=== PATIENT | male | born 1960 | race Caucasian/White ===

== ENCOUNTER 2017-05-09 06:28 | Day surgery (SDC) | payer BC ==
[2017-05-08 16:46] VITALS: BMI 43.7
[2017-05-09 07:50] LABS: Hematocrit 43.1 % (42.0-52.0); Mean Platelet Volume 6.3 fL (7.4-10.4); Red Blood Cell (RBC) Count 4.63 mill/uL (4.70-6.10)
[2017-05-09 07:54] LABS: Prothrombin Time 16.3 SEC (12.0-14.7)
[2017-05-09 07:55] LABS: PTT 41.2 SEC (22.9-36.1)
[2017-05-09 08:08] LABS: Anion Gap 11 mmol/L (10-20); BUN (Urea Nitrogen) 22 mg/dL (8.4-25.7); Calc. Creatinine Clearance 174 mL/min (70-130); Calcium 9.5 mg/dL (7.8-10.44); Carbon Dioxide 28 mmol/L (22-29); Chloride 104 mmol/L (98-107); Cholesterol 135 mg/dl (< 200 Desired); Estimated GFR-MDRD 73; LDL Cholesterol, Calculated 60 mg/dL
[2017-05-09 08:09] LABS: Band 2 % (5-11); Metamyelocyte 1 % (0-0); Neutrophil 43 % (42-75); Reactive Lymphocytes 1 % (0-10)
[2017-05-09] MEDS ORDERED: Propofol 500 MG/50 ML VIAL ONE ×4 (08:11→10:47)
[2017-05-09] MEDS ORDERED: Midazolam HCl 2 mg/2 ml Vial ONE ×2 (08:20→10:28)
[2017-05-09] MEDS ORDERED: Heparin 10,000 UNITS/1 ML VIAL ONE (09:47)
[2017-05-09] MEDS ORDERED: DOPamine 400 MG/D5W 250 ML 250 ML ONE ×2 (10:36→12:33)
[2017-05-09] MEDS ORDERED: Ondansetron HCl/PF 4 MG/2 ML Vial ONE ×2 (11:29→11:45)
--- NOTE | 2017-05-09 11:34 | OP ---
DATE OF PROCEDURE: 05/09/2017 ELECTROPHYSIOLOGY STUDY AND RADIOFREQUENCY ABLATION REPORT REFERRING PHYSICIAN: Dr. Cruz Cutler REASON FOR PROCEDURE: Mr. Epperson is a 56-year-old man who has developed atrial flutter following an anaphylactic reaction to shellfish. The patient has remained in atrial flutter and was anticoagula manuel and rate controlled with Xarelto and metoprolol. Now he is here for radiofrequency ablation. H e has not stopped the Xarelto until yesterday. The decision was made to perform procedure on anticoagulation to avoid a chance of ischemic stroke. PROCEDURE: The patient received deep sedation by Anesthesia specialist. After adequate level of se dation achieved, the right femoral area was prepped, draped and anesthetized using subcutaneous lido rishi. The right femoral vein was accessed with ultrasound guidance. Two short 8 [place] sheaths we re introduced through this a 7 [place] Decapolar, catheter was advanced to the right atrium, his bund le, right ventricular and eventually the CS position. Following that studies were performed p roving atrial flutter, which appears to be typical and an 8 [place] Thermocool SmartTouch SF ablation catheter was advanced to the right atrium which was used to obtain full 3D mapping of the right atr ium, isthmus and CS location. Following that, further pacing maneuvers proved cavotricuspid isthmus dependency of the flutter with a short at the isthmus is noted. The flutter cycle length was 240 milliseconds. Following that radiofrequency ablation was performed over the cavotricuspid isthmus achieving complete block. During the ablation the flutter terminate d. Subsequent to that, repeat activation mapping of the isthmus was performed with proximal CS spac ing and further ablation points were delivered to achieve complete block with the cavotricuspid isth mus. With the ablation, the initial transisthmus 60 milliseconds increased to 200 milliseconds and beyond. Cavotricuspid isthmus block was demonstrated by the longest transisthmus time by the ablati on line and progressively shortening transisthmus times were measured more lateral to the line. Following that, the baseline EP studies were obtained showing a sinus node recovery time of 1034 whi ch was corrected about 54 milliseconds. A Wenckebach cycle length was 340, retrograde Wenckebach wa s about 500, central concentric retrograde VA activation is seen. The baseline measurements showing QRS duration 127, QT 360, HV is about 52 milliseconds at baseline. Repeated ablation maneuvers wer e attempted with burst pacing in the atrium which did not reinduce the atrial flutter on or off dopa mine as well. CONCLUSION: 1. Typical cavotricuspid isthmus dependent atrial flutter detected at baseline. 2. Successful cavotricuspid isthmus ablation eliminated atrial flutter and reinducibility. 3. Definite cavotricuspid isthmus block was demonstrated with increasing transisthmus time over 200 milliseconds. 4. Normal sinus and AV alirio function, no evidence of accessory pathways, no other atrial or suprav entricular arrhythmias are inducible.
[2017-05-09] MEDS ORDERED: Fentanyl 100 MCG/2 ML VIAL ONE (11:59)
--- NOTE | 2017-05-09 15:09 | ECHO ---
TWO DAY ECHOCARDIOGRAM REPORT: REFERRING PHYSICIAN: Dr. Cruz Cutler. REASON FOR PROCEDURE: Mr. Epperson is a 56-year-old man with A history of atrial flutter who underwent radiofrequency ablati on of the atrial flutter today. He is here postop with an episode of hypotension to evaluate for ef fusion or structural issues. PROCEDURE RESULTS: The left ventricle is nondilated. Left systolic function appears to be preserved. Mild concentric left hypertrophy is noted. Mitral valve has a trace regurgitation. Aortic valve has mild regurgita tion. Threshold is difficult to measure due to superior imposing mitral inflow Doppler waves postop . The tricuspid regurgitation velocity is about 1 meter per second systolic. Inferior vena cava is slightly dilated, but without significant respiratory variation postop. The right-sided chamber is nondilated and is free of effusion. The aortic valve has 3 leaflets, nonstenotic. Normal valvular stenosis identified. The rest portion of the ascending aorta is also nondilated. CONCLUSION: 1. Normal left ventricular systolic function. 2. Mild left atrial enlargement. 3. No pericardial effusion documented. 4. Mitral valve inflow pattern without significant respiratory variation. 5. Trace to mild AI, no other significant valvular abnormalities identified. POS: [facility]
== END 2017-05-09 17:23 | disposition home or self-care (01) ==
LOC: CCL 06:28
PROVIDERS: ATTEND Internal Medicine Cardiovascular Disease
DX: I48.4 Atypical atrial flutter (principal); E78.00 Pure hypercholesterolemia, unspecified; I10 Essential (primary) hypertension; E11.9 Type 2 diabetes mellitus without complications; E66.9 Obesity, unspecified; Z68.41 Body mass index [BMI] 40.0-44.9, adult; Z79.2 Long term (current) use of antibiotics; Z79.4 Long term (current) use of insulin; Z79.899 Other long term (current) drug therapy; Z91.013 Allergy to seafood; Z90.89 Acquired absence of other organs; Z98.890 Other specified postprocedural states; Z87.891 Personal history of nicotine dependence
CPT/HCPCS: 36415; 36416; 76942; 80048; 80061; 85007; 85027; 85610; 85730; 93005; 93010; 93306; 93613; 93623; 93653; 96374; C1730; C1769; J1265; J1644; J2250; J2405; J2704; J3010

== ENCOUNTER 2017-05-11 05:02 | Inpatient (IN) | payer BC ==
[2017-05-11 05:55] LABS: #Eosinphils 0.3 thou/uL (0.0-0.7); #Lymphocytes 1.9 thou/uL (1.20-3.40); #Monocytes 0.9 thou/uL (0.11-0.59); #Neutrophils 7.4 thou/uL (1.40-6.50); %Basophils 0.1 % (0.0-1.0); %Eosinophils 3.2 % (0.0-10.0); %Lymphocytes 18.3 % (21.0-51.0); %Monocytes 8.7 % (0.0-10.0); Hematocrit 42.5 % (42.0-52.0); Mean Platelet Volume 6.6 fL (7.4-10.4); Red Blood Cell (RBC) Count 4.54 mill/uL (4.70-6.10); White Blood Cell (WBC) Count 10.6 thou/uL (4.8-10.8)
[2017-05-11 06:18] LABS: ALT (SGPT) 45 U/L (8-55); AST (SGOT) 26 U/L (5-34); Alkaline Phosphatase 45 U/L (40-150); Anion Gap 13 mmol/L (10-20); BUN (Urea Nitrogen) 21 mg/dL (8.4-25.7); Bilirubin, Total 0.6 mg/dL (0.2-1.2); Calc. Creatinine Clearance 0 mL/min (70-130); Carbon Dioxide 29 mmol/L (22-29); Chloride 100 mmol/L (98-107); Estimated GFR-MDRD 60; Globulin 2.9 g/dL (2.4-3.5); Protein, Total 6.7 g/dL (6.0-8.3)
[2017-05-11 06:28] LABS: Troponin I 0.347 ng/mL (< 0.028)
[2017-05-11] MEDS ORDERED: Azithromycin 250 MG TAB ONE (06:47)
[2017-05-11] MEDS ORDERED: cefTRIAXone\\ROCEPHIN 1 GM VIAL ONE (06:47)
--- NOTE | 2017-05-11 07:48 | RAD ---
SINGLE VIEW OF CHEST: Date: 05/11/17 COMPARISON: 12/06/09. HISTORY: Status post heart ablation last with shortness of breath starting last night. FINDINGS: Single view of the chest shows a normal sized cardiomediastinal silhouette. There is no evidence of consolidation, mass, or pleural effusion. The bones are unremarkable. IMPRESSION: No evidence of acute cardiopulmonary disease. POS: [facility]
[2017-05-11] MEDS ORDERED: Dextrose 50% Abboject 50 ML SYRINGE SLOW IVP PRN (08:05)
[2017-05-11] MEDS ORDERED: Dextrose 5% in Water 1,000 ML IV PRN (08:05)
--- NOTE | 2017-05-11 08:45 | HP ---
PRIMARY CARE PHYSICIAN: Dr. Marco Eisenberg PATIENT ATTENDANT: Dr. Braxton DATE OF ADMISSION: 05/11/2017 CHIEF COMPLAINT: Acute shortness of breath. HISTORY OF PRESENT ILLNESS: Mr. Epperson is a pleasant 56-year-old gentleman who has a recent past me dical history that has been complicated by severe shellfish allergic reaction back on 04/12/2017. D uring evaluation for that, he was found to be in atrial flutter. He was referred to Cardiology and saw Dr. Braxton. Dr. Braxton performed an ablation and cardioversion on 05/09/2017 here at [facility]. The patient has been on Xarelto. He did well post-procedure until around 2100 last night he became acutely short of breath, developed a cough productive of some mucus with some blood tinging that seemed to get worse through the night , but has now resolved. He called his primary doctor instructional supervisor who [facility] Here on evaluation, he was found to be in mild respiratory distress. Workup showed normal labs exce pt for a troponin I of 0.347 and a D-dimer 1.64. CT angiogram was ordered, but due to his recent al lergy has been converted over to a VQ scan. The patient denies any fevers or chills, no cold sweats. No nausea, vomiting, diarrhea, constipatio n. He denies any increased swelling to his lower extremities. He does feel the chest tightness and wheezing. PAST MEDICAL HISTORY: 1. Diabetes mellitus type 2 with peripheral neuropathy. 2. Recent atrial flutter, status post ablation. 3. Hypertension. 4. He is on antihyperlipidemic agents, however, it is in place for cardioprotection. He has never had a documented high cholesterol level. PAST SURGICAL HISTORY: 1. Ablation on 05/09/2017. 2. Right knee repair in the . 3. Sinus surgery in 1998. 4. Left thumb repair in 1977. HOME MEDICATIONS: 1. [place] 5/325 one p.o. b.i.d. 2. Janumet 50/500 one p.o. b.i.d. 3. Atorvastatin 20 mg p.o. at bedtime. 4. Lantus 44 units subcu q.p.m., he did take it last night. 5. Xarelto 20 mg daily. 6. Metoprolol tartrate 50 mg p.o. b.i.d. 7. Moexipril 7.5 mg p.o. q.a.m. 8. Gabapentin 900 mg p.o. b.i.d. ALLERGIES: ADHESIVES, IODINE is assumed due to his recent SHELLFISH allergy. He has no known drug allergies. FAMILY HISTORY: Significant for dad, a paternal grandmother with diabetes. His dad also had prosta te cancer. No history of clotting or bleeding disorders, no immune dysfunction. SOCIAL HISTORY: Significant for past tobacco. He smoked about 1 pack per day for about 20 years, b ut quit in 2009. He is currently negative for habits x3. He is . His accompanies him to the ER. REVIEW OF SYSTEMS: A 10-point review of systems was performed, negative for all other systems excep t that as per HPI. PHYSICAL EXAMINATION: VITAL SIGNS: Temperature 98.3, pulse 88, blood pressure 112/92, respiratory 20, satting 91% on room air, 97% on 2-3 liters. GENERAL: He is awake. He is alert. He is oriented x3. He is a well-developed, well-nourished, ob riky white male, appears to be in no acute distress. HEENT: Normocephalic, atraumatic. Pupils equal, round, react to light bilaterally, mucous membrane s are moist with no visible lesions. No thrush. NECK: Supple, without lymphadenopathy, JVD, or thyromegaly. He has had normal carotid upstrokes. I do not hear bruits. LUNGS: He has good air movement bilaterally with symmetric chest excursion. He has slight upon exp iratory phase with end-expiratory high pitched wheezing. I do not hear any crackles, I do not hear any rhonchi. CARDIOVASCULAR: Normal S1, S2, no S3 or S4. He has a regular rhythm and a normal rate. He has no audible murmurs. ABDOMEN: Obese. It is nontender, nondistended with normoactive bowel sounds. There is no rebound, rigidity or guarding. EXTREMITIES: No cyanosis or clubbing with trace edema to the mid tibial level bilaterally. He has 2+ peripheral pulses of the dorsalis pedis and posterior tibial arteries bilaterally. SKIN: Warm, moist, and well perfused. He has no specific rashes or lesions, other than right lower extremity has a small scab present on the anterior surface and an old scarred to area along the ant erior tibialis location. MUSCULOSKELETAL: Normal to inspection, there is no inflamed joints and no palpable joint effusions. NEUROLOGIC: Cranial nerves II-XII are grossly intact with no focal neurologic deficit. He has 5/5 strength, normal reflexes in all 4 extremities, and a normal speech pattern. LABORATORY DATA: CMP is normal except for a glucose of 267. His creatinine is 1.24 up from his bas cristobal of around 1. CBC showed a white count 10.6, hemoglobin 13.9, hematocrit of 42.5 and platelets 191,000. D-dimer i s elevated at 1.64. Troponin I is elevated at 0.347 with a normal MB fraction, CK-MB of 2.3. Chest x-ray looks like it might have mild pulmonary edema, official reading showed no acute cardiopu lmonary disease. ASSESSMENT AND PLAN: 1. Acute onset of shortness of breath. In the setting of abnormal D-dimer, mildly elevated troponi n, possible mild pulmonary edema, certainly differential diagnosis includes non-ST elevation myocard ial infarction, pulmonary embolus, or acute onset of systolic or diastolic congestive heart failure. We will get echocardiogram, serial cardiac biomarkers, and follow up on the VQ scan. We will ask C ardiology to evaluate the patient. I do not know that there is anything additional to be done until these results are back. 2. Wheezing: New for this patient. He has no history of any kind of asthma or chronic obstructive pulmonary disease. We will have albuterol nebulizer treatments available q.4 h. p.r.n. wheezing. We will see how he responds. 3. Diabetes mellitus type 2 with peripheral neuropathy: The patient is on long-term insulin with L antus in the evening. We will continue that. I will place him on a diabetic diet, hold his Janumet and use sliding scale insulin. 4. Recent atrial flutter, status post ablation. We will ask Cardiology to opine. I suspect that h is elevated D-dimer and troponin are related to his ablation and cardioversion. We will continue th e Xarelto 20 mg daily as prescribed. 5. Hypertension, on metoprolol, moexipril: We will hold his moexipril right now in the setting of increased creatinine. We will continue metoprolol.
[2017-05-11] MEDS ORDERED: Gabapentin 300 MG CAP PO SCH (09:00)
[2017-05-11] MEDS ORDERED: Acetaminophen 325 MG TAB PO PRN (09:29)
[2017-05-11] MEDS ORDERED: Ondansetron HCl/PF 4 MG/2 ML Vial IVP PRN (09:29)
[2017-05-11] MEDS ORDERED: Ondansetron ODT 4 MG TAB PO PRN ×2 (09:29→09:35)
[2017-05-11] MEDS ORDERED: Sodium Chloride 0.9% 1,000 ML IV SCH (09:30)
[2017-05-11] MEDS ORDERED: Furosemide 20 MG TAB PO SCH (09:35)
[2017-05-11] MEDS ORDERED: HYDROcodone/Acetaminophen 5/325 mg Tablet PO PRN (09:35)
[2017-05-11] MEDS ORDERED: Albuterol Sulfate 2.5 mg/3 ml Neb NEB PRN (09:35)
[2017-05-11] MEDS ORDERED: Famotidine 20 MG TAB PO SCH ×2 (09:35→10:15)
[2017-05-11] MEDS ORDERED: HYDROcodone/Acetaminophen 10/325 mg Tablet PO PRN (09:35)
[2017-05-11] MEDS ORDERED: Guaifenesin DM 100-10/5 ML UDCUP PO PRN (09:35)
[2017-05-11] MEDS ORDERED: Calcium Carbonate 500 MG ChewTAB PO PRN (09:35)
[2017-05-11 09:44] LABS: Troponin I 0.367 ng/mL (< 0.028)
--- NOTE | 2017-05-11 09:53 | NM ---
VENTILATION PERFUSION LUNG SCAN: Date: 05/11/17 COMPARISON: None. HISTORY: Chest pain, shortness of breath, recent heart ablation, cough. TECHNIQUE: Ventilation imaging obtained following the inhalation of 13.2 mCi Xenon-133 gas by face mask. Perfus ion imaging obtained following the intravenous injection of 6.4 mCi technetium-99m labeled MAA. FINDINGS: The ventilation and perfusion imaging is unremarkable. Ventilation imaging demonstrates normal wash- in, equilibrium, and wash-out phase imaging. The perfusion imaging demonstrates no focal defect/defi cit. IMPRESSION: Unremarkable ventilation perfusion lung scan - very low probability for pulmonary embolism. POS: [facility]
[2017-05-11 10:26] VITALS: BMI 48.9
[2017-05-11] MEDS: Gabapentin 300 MG CAP PO SCH ×2 (10:58→21:43)
[2017-05-11] MEDS: Metoprolol Tartrate 50 MG TAB PO SCH ×2 (10:58→21:43)
[2017-05-11 12:35] LABS: Troponin I 0.298 ng/mL (< 0.028)
--- NOTE | 2017-05-11 16:35 | CON ---
DATE OF CONSULTATION: 05/11/2017 REASON FOR CONSULTATION: Shortness of breath. PRIMARY CARE PROVIDER: Mk Gold MD HISTORY OF PRESENT ILLNESS: Mr. Epperson is a pleasant 56-year-old gentleman who is a patient of Dr. Cruz Cutler. He recently underwent atrial flutter ablation by Dr. Braxton on 05/09/2017. He devel oped atrial flutter after recent anaphylactic reaction to shellfish. He thinks he went home and felt well on 05/10/2017. He then developed shortness of breath. He also states he was coughing up blood, that was mainly in his sputum. No clot present. He was placed on Xarelto recently due to atrial flutter. PAST MEDICAL HISTORY: Diabetes mellitus, atrial flutter, hypertension. PAST SURGICAL HISTORY: Knee repair, sinus surgery, thumb repair. HOME MEDICATIONS: [place], Janumet, atorvastatin, Lantus, Xarelto, metoprolol, and gabapentin. ALLERGIES: IODINE. FAMILY HISTORY: Positive for CAD. SOCIAL HISTORY: No current tobacco or alcohol use. REVIEW OF SYSTEMS: Ten-point review of systems is reviewed and as above, otherwise negative. PHYSICAL EXAMINATION: GENERAL: Patient is a pleasant male who is in no acute distress. The patient appears his stated age. VITAL SIGNS: Blood pressure 158/74, pulse 86, and temperature 99. NEUROLOGIC: The patient is alert and oriented times 3 with no focal neurologic deficits. HEENT: Sclerae without icterus. Mouth has moist mucous membranes with normal pallor. NECK: No JVD. Carotid upstroke brisk. No bruits bilaterally. LUNGS: Clear to auscultation with unlabored respirations. BACK: No scoliosis or kyphosis. CARDIAC: Regular rate and rhythm with normal S1 and S2. No S3 or S4 noted. No significant rubs, murmurs, thrills, or gallops noted throughout the precordium. PMI is not displaced. There is no parasternal heave. ABDOMEN: Soft, nontender, nondistended. No peritoneal signs present. No hepatosplenomegaly. No abnormal striae. EXTREMITIES: 2+ femoral and 2+ dorsalis pedis pulses. No cyanosis, clubbing, or edema. SKIN: No gross abnormalities. PERTINENT LABS: Peak troponin 0.347, creatinine 1.24, GFR of 60. Hemoglobin 13.9. IMPRESSION: 1. Acute shortness of breath. 2. Atrial flutter, status post ablation. 3. Hemoptysis. RECOMMENDATIONS: His chest x-ray was negative. His pulmonary function test is also negative. At t his point, I would be concerned about pericardial effusion which would be rare. His blood pressure is stable as is his heart rate, it is unlikely. We will check echo Doppler for further assessment. We will hold his Xarelto for now and add Lovenox until his issue currently resolved. We would give a dose of Lasix after echo has been performed.
[2017-05-11] MEDS: HumaLOG 300 UNITS/3 ML VIAL SC PRN (16:49)
[2017-05-11 17:59] LABS: Troponin I 0.286 ng/mL (< 0.028)
[2017-05-11] MEDS ORDERED: Non-Formulary Item 1 EACH (Rivaroxaban [Xarelto] 20 MG) PO SCH (21:00)
[2017-05-11] MEDS ORDERED: Atorvastatin Calcium 20 MG TAB PO SCH (21:00)
[2017-05-11] MEDS ORDERED: Insulin Detemir 100 UNITS/ML 44 UNITS in Pre-Filled Syringe 1 EACH SC SCH (21:00)
[2017-05-11] MEDS ORDERED: INSULIN GLARGINE HUM REC ANLOG 44 UNIT SQ SCH (21:00)
[2017-05-11] MEDS ORDERED: Rivaroxaban 10 MG TAB PO SCH (21:00)
[2017-05-11] MEDS ORDERED: FLU VACC QS2017-18 36 mo. & older 0.5 ML SYRINGE IM ONE (21:00)
[2017-05-11] MEDS: Famotidine 20 MG TAB PO SCH (21:43)
[2017-05-11] MEDS: Acetaminophen 325 MG TAB PO PRN (22:53)
[2017-05-12 02:36] LABS: #Eosinphils 0.3 thou/uL (0.0-0.7); #Lymphocytes 2.5 thou/uL (1.20-3.40); #Monocytes 1.1 thou/uL (0.11-0.59); #Neutrophils 6.3 thou/uL (1.40-6.50); %Basophils 0.5 % (0.0-1.0); %Eosinophils 2.7 % (0.0-10.0); %Lymphocytes 24.5 % (21.0-51.0); %Monocytes 10.9 % (0.0-10.0); Hematocrit 39.4 % (42.0-52.0); Mean Platelet Volume 6.5 fL (7.4-10.4); Red Blood Cell (RBC) Count 4.21 mill/uL (4.70-6.10); White Blood Cell (WBC) Count 10.2 thou/uL (4.8-10.8)
[2017-05-12 02:57] LABS: Troponin I 0.218 ng/mL (< 0.028)
[2017-05-12 03:08] LABS: Anion Gap 9 mmol/L (10-20); BUN (Urea Nitrogen) 14 mg/dL (8.4-25.7); Calc. Creatinine Clearance 212 mL/min (70-130); Calcium 9.5 mg/dL (7.8-10.44); Carbon Dioxide 33 mmol/L (22-29); Chloride 99 mmol/L (98-107); Estimated GFR-MDRD 83
[2017-05-12] MEDS: Metoprolol Tartrate 50 MG TAB PO SCH (09:38)
[2017-05-12] MEDS: Famotidine 20 MG TAB PO SCH (09:38)
[2017-05-12] MEDS: Gabapentin 300 MG CAP PO SCH (09:38)
[2017-05-12] MEDS: Acetaminophen 325 MG TAB PO PRN (09:45)
[2017-05-12] MEDS ORDERED: Furosemide 40 MG/4 ML VIAL IVP SCH (10:45)
[2017-05-12] MEDS: HumaLOG 300 UNITS/3 ML VIAL SC PRN (11:39)
[2017-05-12 15:30] VITALS: BP 162/64; TEMP 98.2
--- NOTE | 2017-05-12 17:10 | DIS ---
DATE OF ADMISSION: 05/11/2017 DATE OF DISCHARGE: 05/12/2017 PRIMARY CARE PHYSICIAN: Marco Eisenberg MD DISCHARGE DIAGNOSES: 1. Acute bronchitis. 2. Acute hypoxic respiratory failure - resolved. 3. Recent atrial flutter. 4. Status post ablation for atrial flutter. 5. Hypertension. 6. Diabetes mellitus type 2, insulin-dependent. CONSULTATION: Cardiology, Dr. Ragland. PROCEDURE: Echocardiogram on 05/11/2017 that was normal. HISTORY AND PHYSICAL: Mr. Epperson is a pleasant 56-year-old gentleman with severe obesity, BMI of 49 , who presents to the hospital for acute shortness of breath. He is 2 days post-ablation for atrial flutter. This started after a reaction to shellfish back in March. Ablation was without noted complications. The patient was acutely short of breath in this morning a nd the morning of admission, developed blood-streaked sputum, so presented [facility] for evaluation. There was, however, found to have low oxygen levels and we were called for admission and further wor kup. HOSPITAL COURSE: The patient was seen and examined by myself in the ER. He appeared to be acutely well in trauma. He was admitted to the hospital and Cardiology was consulted. VQ scan was obtained that showed low probability for pulmonary embolus and Cardiology evaluated him and felt like he nee ded to have an echo done to rule out pericarditis post-procedure. Echo was unremarkable. He remained afebrile overnight, was weaned off oxygen, and was stable for [facility] today. Due to the presentation with cough and blood-streaked sputum, he was diagnosed with acute bronchitis and discharged on antibiotics. PHYSICAL EXAMINATION: The patient was seen and examined on the day of discharge. DISCHARGE PLAN: Disposition were discussed with the patient [id number] at the bedside. DISCHARGE MEDICATIONS: 1. Levofloxacin 500 mg p.o. daily for 7 days. Prescription sent to his pharmacy. 2. Lipitor 20 mg p.o. q.p.m. 3. Gabapentin 800 mg b.i.d. 4. Hydrocodone p.r.n. 5. Lantus 44 units subcu q.p.m. 6. Metoprolol tartrate 25 mg p.o. b.i.d. 7. Moexipril 7.5 mg p.o. daily. 8. Xarelto 20 mg p.o. q.p.m. 9. Janumet 50/500 one p.o. b.i.d. FOLLOWUP APPOINTMENTS: 1. Primary care physician within a week. 2. Dr. Braxton with EP per his prior scheduled visit. DISCHARGE CONDITION: Good. DISPOSITION: The patient has been discharged home via private vehicle.
[2017-05-13] MEDS ORDERED: Rivaroxaban 10 MG TAB PO SCH (09:00)
== END 2017-05-12 16:53 | disposition home or self-care (01) | DRG 202 ==
LOC: ERS 05:02 → 2NO 08:55
PROVIDERS: ADMIT Internal Medicine; ATTEND Internal Medicine
DX: J20.9 Acute bronchitis, unspecified (principal); J96.01 Acute respiratory failure with hypoxia; I48.92 Unspecified atrial flutter; Z79.4 Long term (current) use of insulin; I10 Essential (primary) hypertension; Z79.01 Long term (current) use of anticoagulants; E11.42 Type 2 diabetes mellitus with diabetic polyneuropathy; Z87.891 Personal history of nicotine dependence
CPT/HCPCS: 36415; 36416; 71010; 78582; 80048; 80053; 82553; 84484; 85025; 85379; 87040; 93005; 93306; A4216; A9540; A9558; J0696; J1815; J1940

== ENCOUNTER 2017-11-29 08:56 | Outpatient (CLI) | payer BC ==
--- NOTE | 2017-11-29 11:09 | PRG ---
DATE OF SERVICE: 11/29/2017 CHIEF COMPLAINT: Sore left second toe. HISTORY OF PRESENT ILLNESS: A 56-year-old male who presents to the clinic today with a wound on his left second toe. He believes it started about 2 weeks ago. He said he had a crawfish boil and belie ves that he may have dropped a little bit of a scalding water on the foot. He said he did not notice it at that time, but the next day he noticed some blistering and then a wound developed. Since that time it does become more purple and red including up on the foot. He went to his doctor on and was given a shot of Rocephin and started on clindamycin 300 mg 3 times a day. He says since he has started on that some of the redness that was on the dorsum of the foot has decreased in consiste ncy. It was completely red, now it is some speckled areas of redness. He denies nausea, vomiting, f nahid or chills. Does have pain associated with the wound. He has been covering it with gauze and t ape. PAST MEDICAL HISTORY/PAST SURGICAL HISTORY/MEDICATIONS/ALLERGIES/ FAMILY HISTORY/SOCIAL HISTORY AND R JORJEW OF SYSTEMS: [facility] and can be reviewed there. I reviewed these and deem them accurate. PHYSICAL EXAMINATION: VITAL SIGNS: Temperature 98.6, pulse 61, respirations 20, blood pressure 156/74, blood sugar 140. EXTREMITIES: Dorsalis pedis, posterior tibial pulses are palpable. There is immediate capillary heaven l time to the distal aspect of the toe. There is no hair growth on the feet. Skin temperature is wa rm to the touch. No temperature gradient from proximal to distal. No varicosities present. NEUROLOGICAL EXAM: Light touch and protective threshold is intact on cursory exam. DERMATOLOGIC EXAM: There is an ulceration on the left dorsal second proximal interphalangeal joint. It measures 0.9 cm x 1.2 cm x 0.1 cm. It is 100% slough, yellow in coloration. There is periwound erythema up to the metatarsophalangeal joint with some petechiae on the dorsal aspect of the second a nd third metatarsals. No ascending lymphangitis present, no areas of fluctuance to indicate abscess. The wound is superficial in depth does not probe to tendon or bone. ASSESSMENT: 1. Second-degree burn to the left second toe with non-pressure ulceration with fat layer exposed. 2. Type 2 diabetes mellitus. PLAN: 1. I discussed with the patient his condition and treatment options. We are going to continue with him the clindamycin. He has enough to get him through until he sees me again next Saturday. 2. We are going to start him on Aquacel AG daily dressing changes. 3. We educated him on the signs of worsening infection, although he does have quite an experience wi th infections, understands these. He will return immediately should he encounter any of these. 4. Follow up with me in 1 week.
[2017-12-03] MEDS ORDERED: Sodium Chloride 0.9% 15 ML NEB ONE (17:44)
== END 2017-11-29 08:57 | disposition home or self-care (01) ==
LOC: WCC 08:56
PROVIDERS: ATTEND Podiatrist Foot & Ankle Surgery
DX: T25.232D Burn of second degree of left toe(s) (nail), subsequent encounter (principal); E11.621 Type 2 diabetes mellitus with foot ulcer; L97.522 Non-pressure chronic ulcer of other part of left foot with fat layer exposed
CPT/HCPCS: 97602; 99203; G0463

== ENCOUNTER 2017-12-06 09:54 | Outpatient (CLI) | payer BC ==
--- NOTE | 2017-12-06 13:47 | PRG ---
DATE OF SERVICE: 12/06/2017 SUBJECTIVE: This is a 57-year-old male returns today for followup left second toe proximal interphal angeal joint ulceration. States he has done well over the last week, has noticed decreased redness o n the foot, has been taking his clindamycin 3 times daily and has his last dose today. Denies any na usea, vomiting, fevers, or chills. OBJECTIVE: Ulceration to left second toe has decreased in size, measures 0.9 cm x 0.8 cm x 0.1 cm, 1 00% slough on the wound base erythema that had extended on to the foot has resolved. There is still slight erythema in the periwound area, does not probe to deeper tendon or bone. ASSESSMENT: 1. 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 2. Diabetes with peripheral neuropathy. PLAN: 1. Full thickness debridement of the subcutaneous tissue layer removing all nonviable tissue within the wound base down to bleeding granular wound base, removing biofilm and nonviable tissue. 2. Going to switch the patient from Aquacel AG to a Promogran dressing change daily. 3. Patient states he can be out of town next Saturday, but we will follow up with me in 2 weeks. He i s to finish his antibiotics. If he notices a worsening infection and will call him in another antibi otic before his next appointment if necessary.
== END 2017-12-06 09:55 | disposition home or self-care (01) ==
LOC: WCC 09:54
PROVIDERS: ATTEND Family Medicine
DX: E11.621 Type 2 diabetes mellitus with foot ulcer (principal); L97.529 Non-pressure chronic ulcer of other part of left foot with unspecified severity; E11.42 Type 2 diabetes mellitus with diabetic polyneuropathy

== ENCOUNTER 2019-02-20 09:29 | Outpatient (CLI) | payer BC ==
--- NOTE | 2019-02-20 12:50 | MRI ---
MRI OF LUMBAR SPINE WITHOUT CONTRAST: INDICATION: Right hip pain. Back pain. FINDINGS: The lumbar vertebrae maintain height. There is a mild anterolisthesis at L5-S1 and there is loss of disk space with degenerative disk and end plate changes at L5-S1. The other disk spaces are relative ly well preserved, although degenerative signal changes are present. At L1-2, mild diffuse disk bulge. No significant central canal or foraminal stenosis. There is asym metric disk bulge to the left at this level with mild foraminal encroachment. No definite nerve root impingement. At L2-3, no significant disk bulge or protrusion. Mild facet arthrosis. No central canal or foramin al stenosis. At L3-4, minimal disk bulge. Mild facet hypertrophy and arthrosis. No significant central canal or foraminal stenosis. At L4-5, broad-based disk bulge with evidence of small central protrusion indenting the thecal sac. No significant central canal stenosis. No significant foraminal stenosis. At L5-S1, there is anterolisthesis with degenerative disk changes as described above. Mild diffuse d isk bulge abuts the anterior thecal sac. Facet hypertrophy. No significant central canal stenosis. Bilateral foraminal stenosis at this level secondary to the listhesis, disk bulge, and facet hypertr ophy. IMPRESSION: Mild anterolisthesis at L5-S1 with bilateral foraminal stenosis at this level. POS: [facility]
== END 2019-02-20 09:30 | disposition home or self-care (01) ==
LOC: TBSIIMAG 09:29
PROVIDERS: ATTEND Psychiatry & Neurology Neurology
DX: M54.16 Radiculopathy, lumbar region (principal); M43.17 Spondylolisthesis, lumbosacral region; M48.07 Spinal stenosis, lumbosacral region
CPT/HCPCS: 72148

== ENCOUNTER 2019-03-18 09:33 | Outpatient (CLI) | payer BC ==
--- NOTE | 2019-03-18 12:55 | RAD ---
EXAM: LUMBAR SPINE FOUR VIEWS: 03/18/19 HISTORY: Spondylolisthesis. Exam includes standing, flexion and extension lateral views. Grade I anterolisthesis of L5 on S1 without evidence for abnormal translation between flexion and ext ension. Generalized disc osteophytosis and facet arthrosis. No focal bone lesion or acute fracture. IMPRESSION: Anterolisthesis of L5 on S1 without abnormal translation between flexion and extension. Generalized s pondylosis. POS: [facility]
== END 2019-03-18 09:34 | disposition home or self-care (01) ==
LOC: BICRAD 09:33
PROVIDERS: ATTEND Anesthesiology Pain Medicine
DX: M43.10 Spondylolisthesis, site unspecified (principal); M43.17 Spondylolisthesis, lumbosacral region; M47.817 Spondylosis without myelopathy or radiculopathy, lumbosacral region
CPT/HCPCS: 72110

== ENCOUNTER 2019-05-15 07:53 | Outpatient (CLI) | payer BC ==
[2019-05-15 09:02] LABS: #Eosinphils 0.3 thou/uL (0.0-0.7); #Lymphocytes 2.1 thou/uL (1.20-3.40); #Monocytes 0.6 thou/uL (0.11-0.59); %Basophils 0.5 % (0.0-1.0); %Monocytes 8.9 % (0.0-10.0); %Neutrophils 56.5 % (42.0-75.0); Hemoglobin 14.9 g/dL (14.0-18.0); Mean Corpuscular HGB CONC 32.7 g/dL (32.0-36.0); Mean Corpuscular Hemoglobin 30.4 pg (27.0-31.0); Mean Corpuscular Volume 92.9 fL (78.0-98.0); Mean Platelet Volume 6.5 fL (7.4-10.4); Platelet Count 232 thou/uL (130-400); RBC Distribution Width 12.6 % (11.5-14.5)
--- NOTE | 2019-05-15 09:05 | RAD ---
Exam: Chest 2 views HISTORY:Preoperative evaluate Comparison: None FINDINGS: Lungs: No masses or consolidation. Cardiac silhouette: Normal size Pulmonary vessels: Normal Pleural Spaces: Clear Pneumothorax: None Osseous abnormalities: None of acuity. IMPRESSION: No focal consolidation.
[2019-05-15 09:28] LABS: ALT (SGPT) 27 U/L (8-55); AST (SGOT) 19 U/L (5-34); Alkaline Phosphatase 46 U/L (40-110); Anion Gap 12 mmol/L (10-20); BUN (Urea Nitrogen) 17 mg/dL (8.4-25.7); Bilirubin, Total 0.4 mg/dL (0.2-1.2); Calc. Creatinine Clearance 0 mL/min (70-130); Calcium 9.5 mg/dL (7.8-10.44); Carbon Dioxide 28 mmol/L (22-29); Chloride 103 mmol/L (98-107); Estimated GFR-MDRD 65; Globulin 2.3 g/dL (2.4-3.5); Glucose 285 mg/dL (70-105); Potassium 4.7 mmol/L (3.5-5.1); Protein, Total 6.3 g/dL (6.0-8.3); Sodium 138 mmol/L (136-145)
--- NOTE | 2019-05-18 23:05 | EKG ---
Test Reason : Blood Pressure : / mmHG Vent. Rate : 074 BPM Atrial Rate : 208 BPM P-R Int : 000 ms QRS Dur : 118 ms QT Int : 390 ms P-R-T Axes : 000 062 025 degrees QTc Int : 432 ms Atrial fibrillation Low voltage QRS Incomplete right bundle branch block Cannot rule out Anterior infarct , age undetermined Abnormal ECG When compared with ECG of 11-MAY-2017 05:09, Atrial fibrillation has replaced Sinus rhythm Minimal criteria for Anterior infarct are now Present Confirmed by ESTELA LAWSON M.D. ([id number]) on 05/18/2019 11:05:11 PM Referred By: KYLE Confirmed By:ESTELA LAWSON M.D.
== END 2019-05-15 07:54 | disposition home or self-care (01) ==
LOC: LABBT 07:53
PROVIDERS: ATTEND Internal Medicine Cardiovascular Disease
DX: Z01.818 Encounter for other preprocedural examination (principal)
CPT/HCPCS: 71046; 80053; 85025; 93005; 93010

== ENCOUNTER 2019-05-19 05:55 | Day surgery (SDC) | payer BC ==
[2019-05-15 08:22] VITALS: BMI 50.0
[2019-05-19] MEDS ORDERED: Lidocaine 1% (PF) 30 ML VIAL ONE (06:37)
[2019-05-19 06:52] LABS: Cardiac Risk 2.6 (Less than 4.5)
[2019-05-19] MEDS ORDERED: Fentanyl 100 MCG/2 ML VIAL ONE (07:01)
[2019-05-19] MEDS ORDERED: Heparin 10,000 UNITS/1 ML VIAL ONE (07:01)
[2019-05-19] MEDS ORDERED: Midazolam HCl 2 mg/2 ml Vial ONE (07:01)
[2019-05-19] MEDS ORDERED: Protamine Sulfate 50 MG/5 ML VIAL ONE (07:25)
[2019-05-19] MEDS ORDERED: Morphine 4 MG/ML VIAL ONE (10:30)
[2019-05-19] MEDS ORDERED: Iopamidol 370 76% 50 ML VIAL FS ONE (20:48)
[2019-05-19] MEDS ORDERED: Iopamidol 370 76% 100 ML VIAL ONE (20:48)
== END 2019-05-19 16:15 | disposition home or self-care (01) ==
LOC: CCL 05:55
PROVIDERS: ATTEND Internal Medicine Cardiovascular Disease
PROC: B2111ZZ Fluoroscopy of Multiple Coronary Arteries using Low Osmolar Contrast (ICD-10-PCS; principal; 2019-05-19)
PROC: 4A023N7 Measurement of Cardiac Sampling and Pressure, Left Heart, Percutaneous Approach (ICD-10-PCS; principal; 2019-05-19)
DX: R94.39 Abnormal result of other cardiovascular function study (principal); E11.9 Type 2 diabetes mellitus without complications; I48.91 Unspecified atrial fibrillation; E78.00 Pure hypercholesterolemia, unspecified; I10 Essential (primary) hypertension; Z79.01 Long term (current) use of anticoagulants; Z79.4 Long term (current) use of insulin; Z79.899 Other long term (current) drug therapy; Z87.891 Personal history of nicotine dependence; Z88.2 Allergy status to sulfonamides; Z91.041 Radiographic dye allergy status; Z91.013 Allergy to seafood
CPT/HCPCS: 36415; 36416; 76942; 80061; 85347; 93458; 99152; C1769; J1644; J2001; J2250; J2270; J2720; J3010; Q9967

== ENCOUNTER 2019-06-01 08:46 | Outpatient (CLI) | payer BC | END 2019-06-01 08:47 | disposition home or self-care (01) | LOC: DTY/OP 08:46 | PROVIDERS: ATTEND Surgery | DX: E66.01 Morbid (severe) obesity due to excess calories (principal) | CPT/HCPCS: 97802 ==

== ENCOUNTER 2019-06-10 10:52 | Outpatient (CLI) | payer BC ==
--- NOTE | 2019-06-10 11:10 | RAD ---
XR Chest Pa Lat STANDARD HISTORY: Preoperative evaluation COMPARISON: 05/15/2019 FINDINGS: The heart size is normal. The lungs are well expanded without focal areas of consolidation, pneumothorax or pleural effusions. IMPRESSION: No radiographic evidence of acute cardiopulmonary process.
== END 2019-06-10 10:53 | disposition home or self-care (01) ==
LOC: BICRAD 10:52
PROVIDERS: ATTEND Family Medicine
DX: Z01.818 Encounter for other preprocedural examination (principal)
CPT/HCPCS: 36415; 71046; 80053; 83036; 85025

== ENCOUNTER 2019-06-22 07:25 | Inpatient (IN) | payer OTHER ==
[2019-06-19 11:51] VITALS: BMI 47.5
[2019-06-22] MEDS ORDERED: Heparin 5,000 UNITS/ML VIAL ONE (08:27)
--- NOTE | 2019-06-22 08:47 | HP ---
CHIEF COMPLAINT: Morbid obesity. HISTORY OF PRESENT ILLNESS: The patient is a 58-year-old male, who has been overweight for many years, attempted multiple weight loss programs without success. He is here for sleeve gastrectomy. PAST MEDICAL HISTORY: Significant for diabetes, hypertension, hyperlipidemia, peripheral neuropathy, history of basal cell carcinoma, diabetic neuropathy, history of atrial flutter status post ablation. PAST SURGICAL HISTORY: Sinus surgery, knee surgery, thumb surgery, ablation of atrial fibrillation. MEDICATIONS: 1. Janumet. 2. Lantus. 3. Metoprolol. 4. Quinapril. 5. Atorvastatin. 6. New Century. 7. Lipitor. 8. Lyrica. 9. Sildenafil citrate. ALLERGIES: TO CRABS, SULFA. SOCIAL HISTORY: He is an occasional alcoholic. He is . No tobacco. PHYSICAL EXAMINATION: VITAL SIGNS: Height 75. Weight 395. Body mass index 49.37. GENERAL: He is a well-developed, well-nourished male, in no apparent distress. HEENT: Good hair growth. No alopecia. Pupils equal, round, reactive. Extraocular motor intact. Pharynx clear. Good dentition. NECK: Supple. No thyroid masses. No carotid bruits. LUNGS: Clear. HEART: Regular rate and rhythm. ABDOMEN: Soft, nontender, nondistended. No masses or hernias. BACK: Nontender. No deformity. EXTREMITIES: Good pulses. No pedal edema. ASSESSMENT: Morbid obesity with comorbidities. PLAN: Laparoscopic sleeve gastrectomy. CONSENT: I have discussed planned procedure as well as risk of bleeding, infection, injury to esophagus, spleen, loops of bowel, need to open. He understands and gives informed consent. Job ID: [id number]
[2019-06-22] MEDS ORDERED: Bupivacaine 0.25% HCL 30 ML VIAL ONE (09:16)
[2019-06-22] MEDS ORDERED: Midazolam HCl 2 mg/2 ml Vial ONE (09:23)
[2019-06-22] MEDS ORDERED: Fentanyl 250 MCG/5 ML VIAL ONE (09:23)
[2019-06-22] MEDS ORDERED: Ketamine 50 MG/ML (10ML VIAL) ONE (09:24)
[2019-06-22] MEDS ORDERED: PROPOFOL 200 MG/20 ML VIAL ONE (09:48)
[2019-06-22] MEDS ORDERED: Lidocaine 1% PF 5 ML VIAL ONE (09:48)
[2019-06-22] MEDS ORDERED: Rocuronium Bromide 10 MG/ML (10ML VIAL) ONE (09:48)
[2019-06-22] MEDS ORDERED: Glycopyrrolate 0.2 MG/ML 5 ML SYRINGE ONE (09:48)
[2019-06-22] MEDS ORDERED: Ondansetron PF 4 MG/2 ML Vial ONE (09:48)
[2019-06-22] MEDS ORDERED: Ketorolac Tromethamine 30 MG/ML VIAL ONE (09:48)
[2019-06-22] MEDS ORDERED: Insulin Regular 300 UNITS/3 ML VIAL SC PRN ×2 (11:01→19:56)
[2019-06-22] MEDS ORDERED: Ondansetron PF 4 MG/2 ML Vial IVP PRN (11:01)
[2019-06-22] MEDS ORDERED: diphenhydrAMINE 50 MG/ML VIAL IVP PRN ×2 (11:01→11:45)
[2019-06-22] MEDS ORDERED: hydrALAZINE 20 MG/ML VIAL SLOW IVP PRN (11:01)
[2019-06-22] MEDS ORDERED: Promethazine HCl 25 MG/ML VIAL IM PRN ×2 (11:01→11:45)
[2019-06-22] MEDS ORDERED: Dextrose 5% in Water 1,000 ML IV PRN (11:01)
[2019-06-22] MEDS ORDERED: Hydrocodone-Acetamin 15 ML UDCUP PO PRN (11:01)
[2019-06-22] MEDS ORDERED: Dextrose 50 % In Water 50 ML SYRINGE IV PRN (11:01)
[2019-06-22] MEDS ORDERED: Fentanyl 100 MCG/2 ML VIAL ONE ×2 (11:17→11:37)
[2019-06-22] MEDS ORDERED: Sodium Chloride 0.9% (PF) 10 ML VIAL FS PRN (11:24)
[2019-06-22] MEDS ORDERED: Promethazine HCl 25 MG/ML VIAL ONE (11:29)
[2019-06-22] MEDS ORDERED: Zolpidem Tartrate 5 MG TAB PO PRN (11:45)
[2019-06-22] MEDS ORDERED: diphenhydrAMINE 50 MG/ML VIAL IM PRN (11:45)
[2019-06-22] MEDS ORDERED: Communication Order-Pharmacy FS SCH (11:45)
[2019-06-22] MEDS ORDERED: fentaNYL Citrate/PF 2,000 MCG in Sodium Chloride 0.9% 60 ML IV PRN (11:45)
[2019-06-22] MEDS ORDERED: Ketorolac Tromethamine 30 MG/ML VIAL IVP PRN (11:45)
[2019-06-22] MEDS ORDERED: Naloxone HCl 0.4 mg/ml Vial IV PRN (11:45)
[2019-06-22] MEDS ORDERED: diphenhydrAMINE 25 MG CAP PO PRN (11:45)
[2019-06-22] MEDS ORDERED: Ketorolac Tromethamine 30 MG/ML VIAL IVP SCH (12:00)
--- NOTE | 2019-06-22 12:36 | OP ---
DATE OF PROCEDURE: 06/22/2019 PREOPERATIVE DIAGNOSIS: Morbid obesity. PROCEDURE PERFORMED: Laparoscopic sleeve gastrectomy with esophagogastroscopy. INDICATIONS: This is a 58-year-old male, morbidly obese, who has attempted multiple weight loss programs without success. FINDINGS: A 38-Jamaican bougie used. DESCRIPTION OF PROCEDURE: After informed consent was obtained, the patient was taken to the operating room and given general endotracheal anesthesia, placed in the supine position. Abdomen was prepped and draped in usual fashion. Local anesthesia was infiltrated subcutaneously and deep and a 12-mm incision was performed approximately 8 inches above the xiphoid slightly to the left. Veress needle inserted. Drop test performed. Pneumoperitoneum was created to a volume of 2 L of carbon dioxide. Utilizing a bladeless 12-mm trocar and 0-degree laparoscope, direct visual entry into the abdominal cavity was performed. Pneumoperitoneum was created to a pressure of 15 mmHg and the patient was placed in a steep reverse Trendelenburg position. Flakito liver retractor inserted. Left lobe of liver retracted superiorly. The pylorus was identified. A 12-mm port placed on the right beneath it and two 12s were placed on the left subcostal. The omentum was taken off the greater curvature utilizing the LigaSure 5 cm from the pylorus. Short gastrics divided with LigaSure and the left crura defined with LigaSure. A 38-Jamaican bougie inserted, directed into the antrum. The linear 60 mm green load stapler used to divide the antrum to the bougie, gold load along the bougie, and a series of blues through the angle of His. Intraoperative endoscopy was performed. The video endoscope inserted under direct vision and advanced into the sleeve. The staple line inspected. There was no bleeding. Staple line then tested by inflating the new stomach with pressurized air under water. There was no air leak. Stomach decompressed. Scope removed. The remnant stomach removed from the abdomen through the left lateral port site. The fascia was closed with 0 Vicryl suture and the GraNee needle. Trocars and retractors were removed. Skin closed with interrupted 4-0 Rapide. Dermabond applied. The patient tolerated the procedure well, transferred to Recovery in good condition. Sponge and needle count verified correct x2. Job ID: [id number]
[2019-06-22] MEDS: Ondansetron PF 4 MG/2 ML Vial IVP PRN ×2 (13:07→20:33)
[2019-06-22] MEDS: 1/2 NS w/KCL 20 mEq 1,000 ML IV SCH ×2 (15:04→21:33)
[2019-06-22] MEDS ORDERED: Metoclopramide HCl 10 MG/2 ML VIAL IVP PRN (16:23)
[2019-06-22] MEDS: CEFAZOLIN 2 GM in Premix Bag 1 BAG IVPB SCH (16:30)
[2019-06-22] MEDS ORDERED: Scopolamine 1.5 mg/72 hour Patch TOP SCH (16:30)
[2019-06-22] MEDS ORDERED: Labetalol HCl 100 MG/20 ML VIAL SLOW IVP PRN ×2 (18:48→18:56)
[2019-06-22 19:13] LABS: #Lymphocytes 0.8 thou/uL (1.20-3.40); #Monocytes 0.3 thou/uL (0.11-0.59); #Neutrophils 10.5 thou/uL (1.40-6.50); %Basophils 0.1 % (0.0-1.0); %Eosinophils 0.1 % (0.0-10.0); %Lymphocytes 6.8 % (21.0-51.0); %Monocytes 2.9 % (0.0-10.0); %Neutrophils 90.1 % (42.0-75.0); Hemoglobin 15.2 g/dL (14.0-18.0); Mean Corpuscular HGB CONC 32.8 g/dL (32.0-36.0); Mean Corpuscular Hemoglobin 30.2 pg (27.0-31.0); Mean Corpuscular Volume 92.3 fL (78.0-98.0); Mean Platelet Volume 6.8 fL (7.4-10.4); Platelet Count 182 thou/uL (130-400); RBC Distribution Width 12.3 % (11.5-14.5); Red Blood Cell (RBC) Count 5.03 mill/uL (4.70-6.10); White Blood Cell (WBC) Count 11.6 thou/uL (4.8-10.8)
[2019-06-22 19:38] LABS: Anion Gap 17 mmol/L (10-20); BUN (Urea Nitrogen) 28 mg/dL (8.4-25.7); Calc. Creatinine Clearance 113 mL/min (70-130); Calcium 9.6 mg/dL (7.8-10.44); Carbon Dioxide 23 mmol/L (22-29); Chloride 102 mmol/L (98-107); Estimated GFR-MDRD 41; Glucose 242 mg/dL (70-105); Magnesium 1.9 mg/dL (1.6-2.6); Potassium 5.3 mmol/L (3.5-5.1); Sodium 137 mmol/L (136-145)
[2019-06-22] MEDS ORDERED: Acetaminophen 650 MG Suppository PR PRN (19:53)
[2019-06-22] MEDS ORDERED: Acetaminophen 325 MG TAB PO PRN (19:53)
[2019-06-22] MEDS ORDERED: Dextrose 50% Abboject 50 ML SYRINGE SLOW IVP PRN (19:56)
[2019-06-22] MEDS ORDERED: Diltiazem 125 MG in Sodium Chloride 0.9% 100 ML IVPB SCH (23:15)
[2019-06-23 00:11] LABS: Lactic Acid 1.6 mmol/L (0.5-2.2)
[2019-06-23] MEDS: 1/2 NS w/KCL 20 mEq 1,000 ML IV SCH ×5 (00:54→23:07)
[2019-06-23] MEDS: CEFAZOLIN 2 GM in Premix Bag 1 BAG IVPB SCH (00:56)
[2019-06-23 04:33] LABS: #Monocytes 0.5 thou/uL (0.11-0.59); %Basophils 0.1 % (0.0-1.0); %Eosinophils 0.1 % (0.0-10.0); %Lymphocytes 9.2 % (21.0-51.0); %Monocytes 4.8 % (0.0-10.0); %Neutrophils 85.8 % (42.0-75.0); Hemoglobin 14.3 g/dL (14.0-18.0); Mean Corpuscular Hemoglobin 30.5 pg (27.0-31.0); Mean Corpuscular Volume 92.5 fL (78.0-98.0); Mean Platelet Volume 7.2 fL (7.4-10.4); Platelet Count 188 thou/uL (130-400); RBC Distribution Width 12.5 % (11.5-14.5); White Blood Cell (WBC) Count 10.5 thou/uL (4.8-10.8)
[2019-06-23 04:48] LABS: Anion Gap 19 mmol/L (10-20); BUN (Urea Nitrogen) 26 mg/dL (8.4-25.7); Calc. Creatinine Clearance 122 mL/min (70-130); Calcium 9.3 mg/dL (7.8-10.44); Carbon Dioxide 20 mmol/L (22-29); Chloride 101 mmol/L (98-107); Estimated GFR-MDRD 45; Glucose 289 mg/dL (70-105); Potassium 4.9 mmol/L (3.5-5.1); Sodium 135 mmol/L (136-145)
--- NOTE | 2019-06-23 07:36 | CON ---
DATE OF CONSULTATION: PRIMARY CARE PHYSICIAN: Marco Eisenberg MD REASON FOR CONSULTATION: Medical management. CHIEF COMPLAINT: The patient with left-sided abdominal pain. HISTORY OF PRESENT ILLNESS: Mr. Epperson is a 58-year-old gentleman, who was admitted for sleeve gastrectomy, which he had done earlier today. Apparently, he had multiple attempts at weight loss through weight loss programs. These have been unsuccessful. The patient states following surgery, he had some nausea and an episode of vomiting, but this has since settled. He reports having discomfort in the left upper quadrant region, which has been there since his surgery. He is slightly bloated and has not had a bowel movement yet. He has been n.p.o. per Dr. Dong's orders. No further episodes of vomiting. He states he feels well overall as the pain is being controlled with the fentanyl DESK REPRESENTATIVE. Floor nurse reported blood pressure is uncontrolled. The patient states he does not check his blood pressure at home, but thinks that his blood pressure is usually under control and he is compliant with his medications. At present, he denies having any headaches. No chest pain or shortness of breath. All other review of systemsare negative. PAST MEDICAL HISTORY: 1. Diabetes mellitus. 2. Hypertension. 3. Hyperlipidemia. 4. Peripheral neuropathy. 5. History of basal cell carcinoma. 6. History of atrial flutter/atrial fibrillation status post ablation. 7. On anticoagulation for atrial fibrillation, per patient. PAST SURGICAL HISTORY: 1. Sinus surgery. 2. Knee surgery. 3. Thumb surgery. 4. Ablation for atrial fibrillation. 5. Status post laparoscopic sleeve gastrectomy done today, June 22, 2019. SOCIAL HISTORY: The patient denies any tobacco use or illicit drug use. He denies any alcohol intake, but according to the recent H and P done by the surgical team, he was said to be "an occasional alcoholic." PHYSICAL EXAMINATION: GENERAL: The patient appears well developed, well nourished, obese, in no acute distress, lying comfortably in bed. VITAL SIGNS: Temperature 97.9, pulse 75, respirations 16, O2 saturation 95% on room air, and blood pressure 155/75. HEENT: Normocephalic and atraumatic. Pupils are equal and pinpoint, round, and reactive to light. Sclerae icterus. Oropharynx is clear. NECK: Supple without lymphadenopathy. LUNGS: Clear to auscultation bilaterally without wheezes, rales, or rhonchi. CARDIAC: Heart rate irregular, tachycardic. No murmurs or rubs. ABDOMEN: Distended, soft, nontender. Laparoscopic incisions appeared clean, dry without any bleeding or discharge. No surrounding erythema. EXTREMITIES: No lower leg swelling or edema. NEUROLOGIC: Alert and oriented x3. SKIN: Warm and dry. LABORATORY DATA: Glucose checked this morning was 136. IMAGING DATA: Chest x-ray done on June 10, 2019, showed no radiographic evidence of acute cardiopulmonary process. IMPRESSION AND PLAN: Mr. Epperson is a 58-year-old gentleman, who is status post laparoscopic sleeve gastrectomy, who has been referred for management of the following; 1. Hypertension. Currently, his blood pressure is . He is n.p.o. and has received hydralazine with persistently elevated diastolic blood pressure of 111. He is also tachycardic with a heart rate of 112. We will give a dose of labetalol 10 mg IV. No laboratory studies done today. Therefore, we will request labs including electrolytes. We will check BMP. Tachycardia may be associated with his pain. We will await for EKG results to ensure he is not in atrial fibrillation, RVR, given his history of atrial fibrillation. 2. Diabetes mellitus. The patient has been initiated on insulin sliding scale. Diet as per Surgical Team. We will continue to monitor glucose and hold home medications. 3. Hyperlipidemia. Resume home medications once cleared to receive p.o. medications. 4. Gastrointestinal prophylaxis. Famotidine 20 mg IV b.i.d. 5. Deep venous thrombosis prophylaxis. Mechanical SCDs. 6. Code status, full. His surrogate decision maker is his , Mary Ellen Epperson. ADDENDUM: The patient has had laboratory studies done, which showed a slightly elevated white count of 11.6. We will add on lactic acid and procalcitonin. No signs or symptoms of infection. The patient also does have an OFELIA with a creatinine of 1.7 compared to 1.33 previously. He is receiving IV fluids at 125 an hour, which we will continue. We will continue to monitor renal function. Additionally, EKG has been done and it shows the patient is in atrial fibrillation, RVR with a heart rate of 123. Since he just received labetalol, we will go ahead and transfer him to the telemetry floor and once he arrives as still tachycardic, we will plan to give 10 mg of Cardizem or a dose of digoxin. We will discuss further with Dr. Dominique. Dr. Dominique is aware and agrees with the plan as above. Job ID: [id number]
[2019-06-23] MEDS ORDERED: Enoxaparin Sodium 30 MG/0.3 ML SYRINGE SC SCH (09:00)
[2019-06-23] MEDS ORDERED: Metoprolol Tartrate 25 MG TAB PO SCH ×2 (09:00→15:45)
[2019-06-23] MEDS: Pantoprazole 40 MG VIAL IVP SCH (09:10)
[2019-06-23] MEDS: Ondansetron PF 4 MG/2 ML Vial IVP PRN (09:11)
--- NOTE | 2019-06-23 10:05 | RAD ---
Esophagram HISTORY: Bariatric surgery. FINDINGS: Single column contrast evaluation shows postoperative changes of the stomach consistent wit h gastric sleeve procedure. There is no evidence of obstruction or leak.
[2019-06-23] MEDS ORDERED: Hydrocodone-Acetamin 15 ML UDCUP PO PRN (13:53)
--- NOTE | 2019-06-23 14:16 | PRG ---
DATE OF SERVICE: 06/23/2019 SUBJECTIVE: The patient had a lot of nausea last night. He also had a high heart rate and was in atrial fibrillation. He was transferred to telemetry. He was started on a Cardizem drip, it is better now. OBJECTIVE: GENERAL: He looks good and he is awake and alert. VITAL SIGNS: Temperature 97.6, pulse 101, and blood pressure 156/74. SKIN: His incisions are healing well. GI: His barium swallow was fine. LABORATORY DATA: His white count is 10, H and H 14 and 43, and platelet count 188. Electrolytes, his creatinine is 1.5, glucose 289. ASSESSMENT: Status post sleeve with atrial fibrillation with rapid ventricular response. PLAN: Continue medical management. Start bariatric clears, at least stay another night. Job ID: [id number]
--- NOTE | 2019-06-23 14:19 | EKG ---
Test Reason : STAT Blood Pressure : / mmHG Vent. Rate : 119 BPM Atrial Rate : 125 BPM P-R Int : 000 ms QRS Dur : 120 ms QT Int : 336 ms P-R-T Axes : 000 -29 050 degrees QTc Int : 472 ms Atrial fibrillation with rapid ventricular response Low voltage QRS Non-specific intra-ventricular conduction delay Abnormal ECG When compared with ECG of 15-MAY-2019 08:43, Vent. rate has increased BY 45 BPM QRS axis Shifted left Confirmed by ANILA MARQUEZ, DR. Ceja ([id number]) on 06/23/2019 2:18:28 PM Referred By: RAISSA Confirmed By:DR. Marcial HIGH MD
[2019-06-23] MEDS ORDERED: Diltiazem 125 MG in Sodium Chloride 0.9% 100 ML IVPB SCH (15:27)
[2019-06-23] MEDS ORDERED: AFRIN NASAL SPRAY EA NARE PRN (20:43)
[2019-06-23] MEDS: Metoprolol Tartrate 50 MG TAB PO SCH (21:21)
--- NOTE | 2019-06-23 21:26 | CON ---
DATE OF CONSULTATION: HISTORY: Edi Epperson is a 58-year-old white male, who underwent a gastric sleeve placement yesterday and was found to be tachycardiac last night and was moved to telemetry. He was found to be in atrial fibrillation, which he has had since at least February 2019. In April 2017, he had anaphylactic reaction to shellfish and then developed atrial flutter. He underwent flutter ablation by Dr. Braxton. He was followed intermittently in the office after that and did not have any recurrence of any arrhythmia until he was sent for preoperative evaluation on March 26, 2019, prior to undergoing gastric sleeve placement. He was found to be in atrial fibrillation with controlled response. He denied any chest pain, shortness of breath, palpitations, PND, or orthopnea. He underwent echocardiogram, which revealed ejection fraction of 55% to 60% with mild concentric left ventricular hypertrophy, mild mitral regurgitation, and mild tricuspid regurgitation. He underwent Lexiscan Cardiolite, which revealed moderate proximal distal inferior wall decreased myocardial thickening and a moderate fixed proximal distal inferior wall defect. He underwent cardiac catheterization and was found to have normal coronary arteries and normal left ventricular function. He underwent gastric sleeve placement yesterday. Afterwards, he complained of a lot of left abdominal pain. It was also noted that he was tachycardic. EKG was obtained and it was felt that he had gone into new onset atrial fibrillation, however, he has been in atrial fibrillation for at least 3 months. He was placed on Cardizem drip for rate control. He had not received his metoprolol for 24 hours. He denies any chest discomfort, palpitations, or shortness of breath at this time. PAST MEDICAL HISTORY: Hypercholesterolemia, hypertension, diabetes, and obesity. OPERATIONS: Radiofrequency ablation of atrial flutter in 2017, sinus surgery, tonsillectomy, and gastric sleeve. MEDICATIONS: 1. Hydrocodone p.r.n. 2. Atorvastatin 20 daily. 3. Lantus insulin. 4. Janumet. 5. Eliquis 5 mg b.i.d. 6. Metoprolol 50 b.i.d. 7. Quinapril 20 mg daily. ALLERGIES: ANAPHYLAXIS WITH SHELLFISH. SOCIAL HISTORY: He stopped smoking 8 years ago. FAMILY HISTORY: Father has had bypass surgery. REVIEW OF SYSTEMS: A 12-point review of systems is otherwise unremarkable. PHYSICAL EXAMINATION: VITAL SIGNS: Blood pressure 156/74 and pulse of 101, irregularly irregular. HEENT: PERRL. NECK: Supple. CHEST: Clear. CARDIAC: S1 and S2 normal without any S3, S4, or murmurs. ABDOMEN: Obese. Normal bowel sounds. No tenderness. EXTREMITIES: Reveal 1+ pretibial edema. NEUROLOGIC: Grossly intact. SKIN: Warm and dry. LABORATORY DATA: EKG reveals atrial fibrillation with rapid ventricular response of 123 per minute and low-voltage with complete right bundle-branch block. CBC is unremarkable. Sodium 135, potassium 4.9, chloride 101, carbon dioxide 20, BUN 26, and creatinine 1.57. BNP 111.1. IMPRESSION: 1. Status post gastric sleeve surgery. 2. Atrial fibrillation since at least March 26, 2019. He has been anticoagulated with Eliquis. 3. Rapid ventricular response secondary to no metoprolol for 24 hours and post- op pain.. 4. Normal coronary arteries. 5. History of flutter ablation in 2017. 6. Hypertension. 7. Hypercholesterolemia. 8. Diabetes. 9. Former smoker. 10. Positive family history. PLAN: The patient will have his metoprolol 50 mg b.i.d. resumed. He needs to be placed back on Eliquis as soon as possible. When he is back on Eliquis, consideration be given to the addition of Multaq ultimately as an outpatient in the future and electrical cardioversion. I will taper and discontinue his Cardizem. Job ID: [id number] [facility]
--- NOTE | 2019-06-23 22:14 | PDOC.HOSPP ---
- Subjective Encounter Date: 06/23/19 Encounter Time: 12:00 Subjective: no abd pain or nausea no c/o palp or chest pain - Objective Vital Signs & Weight: Vital Signs (12 hours) Temp Pulse Resp BP Pulse Ox 06/23/19 19:20 98.6 F 105 H 20 175/84 H 94 L 06/23/19 15:16 98 F 83 22 H 162/73 H 95 06/23/19 11:00 97.6 F 101 H 18 156/74 H 96 Weight Weight 387 lb 4.8 oz I&O: 06/22/19 06/23/19 06/24/19 06:59 06:59 06:59 Intake Total 1570 1249.3 Output Total 770 1925 Balance 800 -675.7 Result Diagrams: 06/23/19 04:08 06/23/19 04:08 Additional Labs: Accuchecks 06/23/19 06/23/19 06/23/19 20:13 16:27 11:13 POC Glucose 219 H 232 H 253 H 06/23/19 05:18 POC Glucose 259 H Hospitalist ROS - Medication Medications: Active Medications Generic Name Dose Route Start Last Admin Trade Name Freq PRN Reason Stop Dose Admin Hydralazine HCl 10 mg 06/22/19 11:01 06/22/19 15:12 Apresoline SLOW IVP 10 mg Q4H PRN Administration SBP > 170 or DBP > 100 Potassium Chloride/Sodium Chloride 1,000 mls @ 100 mls/hr 06/22/19 20:00 18:46 1/2 Ns W/Kcl 20 Meq IV Not Given .Q10H KATARINA Diltiazem HCl 125 mg/ Sodium 125 mls @ 3 mls/hr 06/23/19 15:27 06/23/19 20:27 Chloride IVPB 06/24/19 06:00 125 mls INF KATARINA Administration Protocol 3 MG/HR Insulin Human Regular 0 units 06/22/19 11:01 06/23/19 17:28 Humulin R SC 4 unit .MODERATE SLIDING SC PRN Administration Moderate Correctional Scale Insulin Human Regular 0 units 06/22/19 19:56 06/22/19 20:44 Humulin R SC 2 unit .BEDTIME SLIDING SC PRN Administration Bedtime Correctional Scale Labetalol HCl 10 mg 06/22/19 18:56 06/22/19 19:10 Normodyne SLOW IVP 10 mg Q4H PRN Administration SBP > 180 OR DBP > 100 Metoclopramide HCl 10 mg 06/22/19 16:23 06/22/19 16:28 Reglan IVP 10 mg Q8H PRN Administration Nausea Metoprolol Tartrate 50 mg 06/23/19 21:00 06/23/19 21:21 Lopressor PO 50 mg BID KATARINA Administration Ondansetron HCl 4 mg 06/22/19 11:45 06/23/19 09:11 Zofran IVP 4 mg Q6H PRN Administration Nausea/Vomiting Pantoprazole Sodium 40 mg 06/23/19 09:00 06/23/19 09:10 Protonix IVP 40 mg DAILY KATARINA Administration Promethazine HCl 12.5 mg 06/22/19 11:45 06/22/19 15:07 Phenergan IM 12.5 mg Q4H PRN Administration Nausea/Vomiting Scopolamine 1.5 mg 06/22/19 16:30 06/22/19 16:29 Transderm Scop TOP 1.5 mg Q3D KATARINA Administration Sodium Chloride 10 ml 06/22/19 11:01 06/22/19 13:07 Flush - Normal Saline IVF 10 ml PRN PRN Administration Saline Flush - Exam General Appearance: NAD, awake alert Eye: PERRL, anicteric sclera ENT: no oropharyngeal lesions, dry oral mucosa Neck: supple, no JVD Heart: RRR, no murmur Respiratory: no wheezes, no rales Gastrointestinal: soft, non-distended, normal bowel sounds Extremities: no cyanosis, no edema Neurological: cranial nerve grossly intact, no focal deficits Psychiatric: normal affect, A&O x 3 Hosp A/P (1) Atrial fibrillation with RVR Code(s): I48.91 - UNSPECIFIED ATRIAL FIBRILLATION Status: Acute (2) s/p gastric sleeve surgery Status: Acute (3) Dyslipidemia Code(s): E78.5 - HYPERLIPIDEMIA, UNSPECIFIED Status: Chronic (4) DM2 (diabetes mellitus, type 2) Status: Chronic Qualifiers: Diabetes mellitus shelter insulin use: without shelter use (5) HTN (hypertension) Code(s): I10 - ESSENTIAL (PRIMARY) HYPERTENSION Status: Chronic Qualifiers: Hypertension type: essential hypertension Qualified Code(s): I10 - Essential (primary) hypertension (6) Obesity, Class III, BMI 40-49.9 (morbid obesity) Code(s): E66.01 - MORBID (SEVERE) OBESITY DUE TO EXCESS CALORIES Status: Chronic - Plan afib is rate controlled on cardizem drip lopressor 50mg bid has been added by with slow taper and dc of cardizem drip hemostable continue bariatric liq diet per gen surg adv on fentanyl, iv fluids, scopalamine patch
[2019-06-24 07:02] LABS: Anion Gap 14 mmol/L (10-20); BUN (Urea Nitrogen) 17 mg/dL (8.4-25.7); Calc. Creatinine Clearance 161 mL/min (70-130); Calcium 9.3 mg/dL (7.8-10.44); Carbon Dioxide 24 mmol/L (22-29); Chloride 101 mmol/L (98-107); Estimated GFR-MDRD 62; Glucose 214 mg/dL (70-105); Potassium 4.7 mmol/L (3.5-5.1); Sodium 134 mmol/L (136-145)
[2019-06-24] MEDS ORDERED: Enoxaparin Sodium 40 MG/0.4 ML SYRINGE SC SCH (09:00)
[2019-06-24] MEDS: Metoprolol Tartrate 50 MG TAB PO SCH (09:34)
[2019-06-24] MEDS: Pantoprazole 40 MG VIAL IVP SCH (09:36)
[2019-06-24] MEDS: 1/2 NS w/KCL 20 mEq 1,000 ML IV SCH (09:40)
--- NOTE | 2019-06-24 09:54 | PRG ---
DATE OF SERVICE: 06/24/2019 SUBJECTIVE: The patient feels fine. He is still having some pain in the left upper side. No nausea, vomiting, tolerating liquids well. OBJECTIVE: VITAL SIGNS: His heart rate is doing better, it is running in the 90s. T-max was 98.1, and blood pressure 117/89. GENERAL: He looks good. Incisions are healing well. ASSESSMENT: Postoperative atrial fibrillation. PLAN: Discharge when cleared by Medicine. Job ID: [id number]
[2019-06-24] MEDS ORDERED: Lisinopril 20 MG TAB PO SCH (10:15)
[2019-06-24 11:31] VITALS: BP 147/80; TEMP 98.4
--- NOTE | 2019-06-24 17:12 | DIS ---
DATE OF ADMISSION: 06/22/2019 DATE OF DISCHARGE: 06/24/2019 DISCHARGE DISPOSITION: To home. PRIMARY DISCHARGE DIAGNOSES: Atrial fibrillation with rapid ventricular response, resolved. The patient is status post laparoscopic gastric sleeve surgery, morbid obesity, dyslipidemia, diabetes mellitus type 2, hypertension. PROCEDURES DONE DURING HOSPITALIZATION: The patient has had laparoscopic sleeve gastrectomy done by Dr. Dong on 06/22/2019. He has had an upper GI series without air contrast done on 06/23/2019, which showed no evidence of obstruction or leak. H and H of 14 and 43, platelet count 188, MCV is 92, BUN 17, creatinine 1.2. BNP 111. Initial BUN and creatinine were 28 and 1.7. Discharge BUN and creatinine are 17 and 1.20. INPATIENT CONSULT: Dr. Cutler for Cardiology. DISCHARGE MEDICATIONS: 1. Lipitor 20 mg p.o. q.p.m. 2. [place] p.r.n. for pain. 3. Lyrica 75 mg p.o. three times daily. 4. Quinapril 20 mg daily. 5. Sildenafil 100 mg q.h.s. p.r.n. 6. Eliquis 5 mg p.o. twice daily to start from tomorrow evening. 7. Lopressor 50 mg twice daily. 8. Scopolamine patch 1.5 mg transdermal q.3 days for a total of 3 patches. 9. Januvia 100 mg p.o. daily. ALLERGIES: SULFA AND CRAB. BRIEF COURSE DURING HOSPITALIZATION: The patient initially got hospitalized electively on the for laparoscopic sleeve gastrectomy. This was done by Dr. Dong. Postop, the patient was recuperating on Med/Surg floor, but went into atrial fibrillation with RVR with underlying history of chronic AFib. His Lopressor was held due to n.p.o. status post surgery and preop. He was initially on Cardizem drip and was transferred to telemetry. 24 hours into his drip, the patient's medications were replaced and in fact, his Lopressor was increased from 25 to 50 mg twice daily. His Cardizem drip was discontinued. He was evaluated by Dr. Cutler. His AFib with RVR is fully rate controlled. He has had prior history of ablation for the same by Dr. Braxton in the past. He will have followup with Dr. Cutler in 3 weeks. He is cleared for discharge by both Dr. Cutler and Dr. Dong. For his diabetes, the patient initially was on Januvia with metformin. In view of current bariatric diet and the patient's oral intake being very minimal, he has been switched over to Januvia. His last four fingerstick have ranged from 214 to 232. He needs to check his fingerstick glucose twice daily for a period of 10 days. Also he was encouraged to have frequent oral sips of fluids and electrolytes to replenish in view of his bariatric procedure done. He will have close followup with Dr. Dong. Please note, I have seen and examined the patient on the day of discharge. Job ID: [id number]
[2019-06-24] MEDS ORDERED: Apixaban 5 MG TAB PO SCH (21:00)
[2019-06-25] MEDS ORDERED: Lisinopril 20 MG TAB PO SCH (09:00)
== END 2019-06-24 13:14 | disposition home or self-care (01) | DRG 620 ==
LOC: SURG A 07:25 → 2NO 21:15
PROVIDERS: ADMIT Surgery; ATTEND Surgery
PROC: 0DB64Z3 Excision of Stomach, Percutaneous Endoscopic Approach, Vertical (ICD-10-PCS; principal; 2019-06-22)
PROC: 0DJ68ZZ Inspection of Stomach, Via Natural or Artificial Opening Endoscopic (ICD-10-PCS; 2019-06-22)
DX: E66.01 Morbid (severe) obesity due to excess calories (principal); I48.20 Chronic atrial fibrillation, unspecified; I97.191 Other postprocedural cardiac functional disturbances following other surgery; I10 Essential (primary) hypertension; E78.5 Hyperlipidemia, unspecified; E11.40 Type 2 diabetes mellitus with diabetic neuropathy, unspecified; I48.91 Unspecified atrial fibrillation; Z68.42 Body mass index [BMI] 45.0-49.9, adult; Z79.899 Other long term (current) drug therapy; Z88.2 Allergy status to sulfonamides; Z91.013 Allergy to seafood; Z87.891 Personal history of nicotine dependence
CPT/HCPCS: 36415; 36416; 74241; 80048; 83605; 83735; 83880; 85025; 88307; 88312; 93005; 93010; 94760; C9113; J0360; J0690; J1644; J1650; J1815; J1885; J2001; J2250; J2405; J2550; J2704; J2765; J3010; J3480; J3490; S0020

== ENCOUNTER 2019-07-31 05:58 | Day surgery (SDC) | payer BC ==
[2019-07-30 10:46] VITALS: BMI 43.7
[2019-07-31] MEDS ORDERED: PROPOFOL 0 ML ONE (07:17)
[2019-07-31] MEDS ORDERED: Ketamine 50 MG/ML (10ML VIAL) ONE (07:46)
[2019-07-31] MEDS ORDERED: PROPOFOL 20 ML ONE (07:46)
--- NOTE | 2019-07-31 14:07 | OP ---
DATE OF PROCEDURE: 07/31/2019 PROCEDURE PERFORMED: Transesophageal echocardiogram. INDICATION: This is a 58-year-old gentleman with paroxysmal atrial fibrillation. DESCRIPTION OF PROCEDURE: The patient was taken to the PACU. The patient was sedated by Anesthesiology. Transesophageal probe was placed into the distal esophagus and stomach. Echocardiographic images were obtained. The transesophageal probe was removed. FINDINGS: 1. Normal left ventricular systolic function. 2. Biatrial enlargement. 3. Normal mitral and aortic valves. 4. Mild mitral regurgitation. 5. Mild aortic regurgitation. 6. Mild tricuspid regurgitation. 7. No thrombus is noted in left atrial appendage. 8. Atherosclerotic debris in the descending aorta. IMPRESSION: No formed thrombus in the left atrial or left atrial appendage. Job ID: [id number] [facility]
--- NOTE | 2019-07-31 16:30 | EKG ---
Test Reason : PREOP Blood Pressure : / mmHG Vent. Rate : 062 BPM Atrial Rate : 500 BPM P-R Int : 000 ms QRS Dur : 118 ms QT Int : 410 ms P-R-T Axes : 000 -10 036 degrees QTc Int : 416 ms Atrial fibrillation Low voltage QRS Incomplete right bundle branch block Cannot rule out Anterior infarct , age undetermined Abnormal ECG When compared with ECG of 22-JUN-2019 20:06, Vent. rate has decreased BY [address] Demarcus MCNALLY ([id number]) on 07/31/2019 4:30:01 PM Referred By: FARZANA Confirmed By:DR. Demarcus MCNALLY
--- NOTE | 2019-07-31 16:35 | EKG ---
Test Reason : POST MELINA/CARDIOVERSI Blood Pressure : / mmHG Vent. Rate : 049 BPM Atrial Rate : 049 BPM P-R Int : 200 ms QRS Dur : 124 ms QT Int : 454 ms P-R-T Axes : 070 012 047 degrees QTc Int : 410 ms Marked sinus bradycardia Non-specific intra-ventricular conduction delay Poor anterior R wave progression Abnormal ECG When compared with ECG of 31-JUL-2019 06:55, (Unconfirmed) Sinus rhythm has replaced Atrial fibrillation Confirmed by DR. Demarcus MCNALLY ([id number]) on 07/31/2019 4:35:04 PM Referred By: FARZANA/CRISTI Confirmed By:DR. Demarcus MCNALLY
== END 2019-07-31 09:30 | disposition home or self-care (01) ==
LOC: CCL 05:58
PROVIDERS: ATTEND Internal Medicine Cardiovascular Disease
PROC: B24BZZ4 Ultrasonography of Heart with Aorta, Transesophageal (ICD-10-PCS; principal; 2019-07-31)
DX: I48.0 Paroxysmal atrial fibrillation (principal); I08.3 Combined rheumatic disorders of mitral, aortic and tricuspid valves; I10 Essential (primary) hypertension; E11.9 Type 2 diabetes mellitus without complications; E78.00 Pure hypercholesterolemia, unspecified; Z79.4 Long term (current) use of insulin; Z79.01 Long term (current) use of anticoagulants; Z79.899 Other long term (current) drug therapy; Z87.891 Personal history of nicotine dependence; Z88.2 Allergy status to sulfonamides; Z91.013 Allergy to seafood; Z91.041 Radiographic dye allergy status
CPT/HCPCS: 36416; 92960; 93005; 93010; 93312; J2704

== ENCOUNTER 2020-08-15 08:12 | Outpatient (CLI) | payer BC ==
[2020-08-15] MEDS ORDERED: Magnevist 469MG/ML 20 ML VIAL ONE (10:00)
--- NOTE | 2020-08-15 10:25 | MRI ---
MRI of thelumbar spine with and without contrast: 08/15/2020 COMPARISON:None available HISTORY:Low back pain, bilateral lower extremity radiculopathy, intermittent fevers TECHNIQUE: Multiplanar multisequence MR imaging of thelumbar spine with and without contrast Findings:The sagittal STIR imaging demonstrates no focal area of osseous marrow edema. On the basis o f 5 lumbar type vertebral bodies, the conus medullaris terminates at T12-L1. T12-L1: Mild bilateral facet hypertrophy. Disc space narrowing with disc desiccation and anterior ost eophyte formation. No significant central canal or neural foraminal stenosis. L1-2: There is disc space narrowing with disc desiccation and minimal disc bulge. Bilateral facet hyp ertrophy and anterior osteophyte formation with no significant central canal stenosis. Mild left neural foraminal stenosis. L2-3: Mild bilateral facet hypertrophy with no significant central canal or neural foraminal stenosis . L3-4: Disc space narrowing with disc desiccation and minimal disc bulge. Mild bilateral facet hypertr ophy, right greater than left. Mild right and moderate left neural foraminal stenosis. No central canal stenosis. L4-5: There is disc space narrowing with disc desiccation and mild disc bulge. Small central annular tear with an associated small central disc herniation. No associated central canal stenosis. Mild bilateral neural foraminal stenosis. L5-S1: Bilateral L5 pars defects are present with 1 cm of anterolisthesis. Moderate/severe bilateral neural foraminal stenosis. No significant central canal stenosis. The imaged retroperitoneal structures demonstrate no acute findings. Postcontrast imaging demonstrates no abnormal enhancement involving the contents of the thecal sac, t he imaged osseous structures, or the intervertebral discs. IMPRESSION:Bilateral L5 pars defects with anterolisthesis at the L5-S1 level. Associated severe bilat eral neural foraminal stenosis.
== END 2020-08-15 08:13 | disposition home or self-care (01) ==
LOC: BICMRI 08:12
PROVIDERS: ATTEND Internal Medicine Infectious Disease
DX: M54.16 Radiculopathy, lumbar region (principal); R50.9 Fever, unspecified; M43.17 Spondylolisthesis, lumbosacral region; M48.061 Spinal stenosis, lumbar region without neurogenic claudication
CPT/HCPCS: 72158; A9579

== ENCOUNTER 2020-08-23 14:55 | Outpatient (CLI) | payer BC ==
[~2020-08-23 14:55] MED LIST: Iopamidol 370 76% 100 ML VIAL ONE
--- NOTE | 2020-08-23 15:50 | CT ---
EXAM: CT abdomen and pelvis with IV contrast PROVIDED CLINICAL HISTORY: Left lower quadrant pain, fever of unknown origin COMPARISON: None FINDINGS: The visualized lung bases are free of significant opacity. Postoperative changes of gastric sleeve ar e demonstrated. The solid abdominal organs demonstrate an unremarkable CT appearance. There is no bowel dilatation, free fluid or free air apparent. There is no evidence for appendicitis. There is mild nonspecific bladder wall thickening with suggestion of surrounding inflammatory change. No regional lymph node enlargement apparent. The regional major vascular structures appear unremarkable. The osseous structures demonstrate no concerning lytic or blastic lesions. IMPRESSION: Findings equivocal for cystitis.
== END 2020-08-23 14:56 | disposition home or self-care (01) ==
LOC: BICCT 14:55
PROVIDERS: ATTEND Internal Medicine Infectious Disease
DX: R10.32 Left lower quadrant pain (principal); R50.9 Fever, unspecified; N30.90 Cystitis, unspecified without hematuria
CPT/HCPCS: 74177; Q9967

== ENCOUNTER 2021-04-21 06:55 | Outpatient (CLI) | payer BC | END 2021-04-21 06:56 | disposition home or self-care (01) | LOC: BICMRI 06:55 | PROVIDERS: ATTEND Orthopaedic Surgery | DX: M50.30 Other cervical disc degeneration, unspecified cervical region (principal); M47.812 Spondylosis without myelopathy or radiculopathy, cervical region | CPT/HCPCS: 72141 ==